=== PATIENT | female | born 1970 | race Caucasian/White ===

== ENCOUNTER 2019-11-02 07:55 | Outpatient (CLI) | payer OTHER, SELFPAY ==
--- NOTE | ~2019-11-02 | US_ITS ---
EXAMINATION: US abdomen limited DATE: 11/02/2019 08:12 INDICATION: Abnormal liver function tests. TECHNIQUE: Multiple grayscale and Doppler ultrasound images of the abdomen were obtained. COMPARISON: CT abdomen and pelvis 02/16/2007 FINDINGS: The visualized portions of the head, body, and tail of the pancreas are normal. The liver i s normal without focal lesion. No liver surface nodularity. There is normal flow in main portal vein. The gallbladder is normal in size and contains gallstones. No gallbladder wall thickening or sonogra phic Mendoza sign. The common duct is normal and measures 3 mm. IMPRESSION: 1. Cholelithiasis. No evidence of acute cholecystitis. Reviewed, dictated and finalized at location A.
== END 2019-11-02 07:56 ==
PROVIDERS: Visit Provider Registered Nurse
DX: R74.8 Abnormal levels of other serum enzymes (principal); K80.50 Calculus of bile duct without cholangitis or cholecystitis without obstruction
CPT/HCPCS: 76705

== ENCOUNTER → 2021-01-22 07:32 | Outpatient (CLI) | payer OTHER, SELFPAY ==
--- NOTE | ~2021-01-22 | MM_ITS ---
EXAMINATION: MM screening william BI w ranjit HISTORY: Screening TECHNIQUE: Craniocaudal and mediolateral oblique 3-D tomosynthesis images were obtained and synthetic 2-D images were generated. CAD analysis was submitted and interpreted. COMPARISON: Comparison to multiple prior studies sequentially, with oldest reviewed study dated 12/14. BREAST PARENCHYMAL COMPOSITION: Breast composed of scattered areas of fibroglandular density FINDINGS: There is no evidence of suspicious mass, calcification, or architectural distortion to sugg est malignancy in either breast. There has been no suspicious interval change. IMPRESSION: 1. No mammographic evidence of malignancy. 2. Recommend routine screening mammography in one year. BI-RADS Category 1: Negative Reviewed, dictated and finalized at location A. T DEPUTY
== END ==
PROVIDERS: PCP Registered Nurse; Visit Provider Nurse Practitioner Obstetrics & Gynecology
DX: Z12.31 Encounter for screening mammogram for malignant neoplasm of breast (principal)
CPT/HCPCS: 77063; 77067

== ENCOUNTER → 2023-03-03 14:50 | Outpatient (CLI) | payer OTHER, SELFPAY ==
--- NOTE | ~2023-03-03 | MM_ITS ---
EXAMINATION: MM screening william BI w ranjit HISTORY: Screening TECHNIQUE: Craniocaudal and mediolateral oblique 3-D tomosynthesis images were obtained and synthetic 2-D images were generated. CAD analysis was submitted and interpreted. COMPARISON: Comparison to multiple prior studies sequentially, with oldest reviewed study dated 01/13. BREAST PARENCHYMAL COMPOSITION: There are scattered areas of fibroglandular density. FINDINGS: There is no evidence of suspicious mass, calcification, or architectural distortion to sugg est malignancy in either breast. There has been no suspicious interval change. IMPRESSION: 1. No mammographic evidence of malignancy. 2. Recommend routine screening mammography in one year. BI-RADS Category 1: Negative Reviewed, dictated and finalized at location A. LERATOR TECHNICIAN
== END ==
PROVIDERS: PCP Nurse Practitioner Obstetrics & Gynecology; Visit Provider Registered Nurse
DX: Z12.31 Encounter for screening mammogram for malignant neoplasm of breast (principal)
CPT/HCPCS: 77063; 77067

== ENCOUNTER 2023-06-10 08:21 | Outpatient (CLI) | payer OTHER, SELFPAY ==
--- NOTE | ~2023-06-10 | US_ITS ---
US abdomen limited DATE: 06/10/2023 08:35 INDICATION: Right upper quadrant abdominal pain. History of gallstones. TECHNIQUE: Real-time imaging of the liver, pancreas, gallbladder COMPARISON: 11/02/2019 Limited abdominal ultrasound examination FINDINGS: No hepatic or pancreatic space-occupying mass lesion. Normal hepatopedal portal venous flow direction. There are stones in the dependent aspect of the gallbladder. No gallbladder wall thickening or perich olecystic fluid. Negative sonographic Mendoza's sign The common bile duct measures 4.5 mm, within norm al range. IMPRESSION: Cholelithiasis Reviewed, dictated and finalized at Location A. Reviewed, dictated and finalized at location A. IMPRESSION: Cholelithiasis
== END 2023-06-10 08:22 ==
LOC: MICIMG 08:22
PROVIDERS: PCP Registered Nurse; Visit Provider Registered Nurse
DX: R10.11 Right upper quadrant pain (principal); K80.20 Calculus of gallbladder without cholecystitis without obstruction
CPT/HCPCS: 76705

== ENCOUNTER 2023-07-13 15:15 | Outpatient (RCR) | payer OTHER, SELFPAY ==
--- NOTE | 2023-06-06 14:08 | OPREHPOC ---
Outpatient Therapy Plan of Care This is a Multidisciplinary Plan of Care that may contain components documented by all disciplines (PT, OT, and ST.) PT Problem 1 PT Problem #1 Knowledge Deficit PT Goal 1 Goal 1. Patient will perform indpendent HEP 2. Patient will verbalize urge suppression techniques Target Visit 2 PT Problem 2 PT Problem #2 Impaired Strength PT Goal 1 Goal 1. Improve pelvic floor strength to 4/5 to decrease incontinence 2. Improve pelvic floor endurance to 10 seconds to decrease incontinence Target Visit 5 PT Problem 3 PT Problem #3 Impaired Functional ADLs PT Goal 1 Goal 1. Patient will report no more than 1 instance of incontinence per week 2. Patient able to hold at least 30 minutes before needing to void to allow for full work activities Target Visit 5
--- NOTE | 2023-06-06 14:08 | PTOPEVAL1 ---
Assessment and note entered by Senait Mariscal DPT Evaluation Information Assessment Status Evaluation Subjective Information Pt reports stress urinary incontinence that has been worsening over time and sometimes notices it if she is busy at work. Incontinence occurs 10 times a day, a few drops at a time. Wears pads all the time which she has only had to do for the past few months. Voids 8 times a day and 0-2 times at night. Can hold urge to void 10-15 minutes depending on fluid intake. Denies pain with urination. BM daily, no pain or incontinence. Reports no history of pelvic pain. Pt has been 2 times, 1 and 1 vaginal. 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 Thinks she had a previous bladder procedure in 3rd grade for UTI's. Previously patient had no or less incontinence and able to hold urge longer. Patient goal: educate myself on how to strengthen No return to MD date set. Reported Pain Level Pain Score 0: Self Report Assessment PT Clinical Summary The patient is presenting to skilled therapy with worsening stress urinary incontinence and urgency. She presents with decreased pelvic floor strength and endurance and decreased overall core strength which are contributing to her incontinence multiple times daily and constant pad use. She will highly benefit from therapy to address these impairments in order to reduce incontinence and improve function. Plan of Care Interventions Manual Therapy,Neuro Re-education,Patient/ Caregiver Education,Therapeutic Activities, Therapeutic Exercise PT Services Indicated Yes Treatment Frequency and 1 time a week for 5 visits Duration These treatments will address the objective and functional deficits as defined above. The patient will be advanced safely and appropriately in order for the patient to progress towards his/her prior level of function. Additional exercises will be introduced and as well as a comprehensive home exercise program upon discharge, if needed, ?to ensure carryover of functional gains achieved in the clinic. This treatment plan has been reviewed and agreement upon by the patient.
--- NOTE | 2023-07-04 09:36 | PCPTNOTE ---
Patient called to cancel appointment on 07/04/23 due to illness.
--- NOTE | 2023-09-26 09:58 | PTOPDC ---
Assessment and note entered by Senait Mariscal, DPT Evaluation Information Assessment Status Discharge - Pt Not Present Subjective Information - Assessment PT Clinical Summary The patient has not attended therapy since 07/13/23 . She will be discharged from therapy at this time . Plan of Care PT Services Indicated No
== END 2023-09-04 14:14 | disposition home or self-care (01) ==
LOC: ANHPT 15:15
PROVIDERS: PCP Nurse Practitioner Obstetrics & Gynecology; Visit Provider Nurse Practitioner
DX: N39.3 Stress incontinence (female) (male) (principal); R10.9 Unspecified abdominal pain
CPT/HCPCS: 97112; 97161; 97530

== ENCOUNTER 2023-08-30 05:51 | Day surgery (SDC) | payer OTHER, SELFPAY ==
[2023-06-20 13:41] VITALS: BMI 37.1
[2023-08-21 10:48] VITALS: BMI 39.0
[2023-08-30 06:19] VITALS: BP 150/102; PULSE 97; RESP 16; TEMP 36.6; O2SAT 99
[2023-08-30] MEDS: LACTATED RINGERS 1,000 ML 150 ML IV CONT (07:00)
--- NOTE | 2023-08-30 07:16 | WPDANESEPPF ---
Anes - Initial Pre Proc Eval Procedure: Operation Date: 08/30/23 07:30 Proposed Procedures p Esophagogastroduodenoscopy - Terence Mcneill MD s Screening Colonoscopy - Terence Mcneill MD Date/Time: 08/30/23 07:16 Surgeon: Terence Mcneill MD Pre Op Diagnosis: Screening neoplasm of colon Patient Data Age: 52 Gender: F Height: 1.6 m Weight: 95.3 kg Last Vital Signs Temp 36.6 C 08/30/23 06:19 Pulse 97 08/30/23 06:19 Resp 16 08/30/23 06:19 BP 150/102 H 08/30/23 06:19 Pulse Ox 99 08/30/23 06:19 O2 Del Method Room Air 08/30/23 06:19 Allergies Allergy/AdvReac Type Severity Reaction Status Date / Time No Known Allergies Allergy Verified 08/30/23 06:13 Home Medications Medication Instructions Recorded Confirmed Type ketoconazole 2 % topical cream 2 applic topical BID 08/21/23 08/30/23 History Patient hx anesthesia problems: none Family hx anesthesia problems: none Results Review: All pre-operative results and documents have been reviewed as part of the pre-operative evaluation. [facility] Past Medical History Medical History (Updated 08/30/23 @ 07:17 by Aguilar Reyes MD) Obesity Surgical History Surgical History (Updated 08/30/23 @ 07:17 by Aguilar Reyes MD) H/O sinus surgery History of section Social History Social History Smoking status: Never smoker Alcohol intake: current Substance use: never Substance use type: does not use Living arrangements: with family Spiritual care concerns: No Anes - Eval Final PreProcedure Day of Procedure 08/30/23 07:16 Patient weight: obese Heart: regular rate and rhythm Lungs: clear to auscultation Airway: Mallampati scale class II Neurological: alert and oriented Last oral intake: >/= 8 hours ASA classification: II Emergent: no Anesthetic plan: proceed Anesthesia type and monitoring: general GIVS and standard monitoring Results Review: All pre-operative results and documents have been reviewed as part of the pre-operative evaluation. Informed Consent: The patient's anesthetic plan and its attendant risks and benefits were discussed with the patient/family/POA. Questions were solicited and answers provided to the satisfaction of the patient/family/POA.
--- NOTE | 2023-08-30 07:23 | PM.HPGS ---
History of Present Illness History of Present Illness Consent: Risks, benefits, and alternatives have been discussed and questions answered. Patient agrees to proceed with procedure. Chief complaint: Screening neoplasm of colon, gerd Narrative: Cindy Castro is a 52 year old female presents for screening colonoscopy. Patient's current weight appetite and bowel movements are normal. Patient denies abdominal pain. Has had no bleeding. Her past history is noncontributory. Patient also has complaints of occasional heartburn. She was prescribed Pepcid but has not taken it. She states that Tums intermittently controls her symptoms. On 1 or 2 occasions food may of hung up in her throat. She attributes this to weight loss medication that she has subsequently discontinued. An EGD Has been requested to assess this. Review of Systems Review of Systems: All systems reviewed & are unremarkable except as noted in HPI and below PMFSH Past Medical History Medical History (Updated 08/30/23 @ 07:26 by Terence Mcneill MD) Obesity Surgical History Surgical History (Updated 08/30/23 @ 07:17 by Aguilar Ryees MD) H/O sinus surgery History of section Social History Social History Smoking status: Never smoker Alcohol intake: current Substance use: never Substance use type: does not use Living arrangements: with family Spiritual care concerns: No Meds Home Medications and Allergies Home Medications Medication Instructions Recorded Confirmed Type ketoconazole 2 % topical cream 2 applic topical BID 08/21/23 08/30/23 History Allergies Allergy/AdvReac Type Severity Reaction Status Date / Time No Known Allergies Allergy Verified 08/30/23 06:13 Vital Signs Vital Signs - 24 hr 08/30/23 06:19 Temperature 97.9 F Pulse Rate 97 Respiratory Rate 16 Blood Pressure 150/102 H Pulse Oximetry 99 Oxygen Delivery Room Air Exam Narrative: Physical exam reveals patient to be alert. Vital signs stable. HEENT exam is unremarkable. Patient is anicteric. Lungs are clear to auscultation and to percussion. Heart is without murmur or extra sounds. After a bowel sounds are present soft nontender with no organomegaly. Digital external rectal exam is normal. Assessment and Plan Assessment and plan (1) Screen for colon cancer: Code(s): Z12.11 - Encounter for screening for malignant neoplasm of colon Status: Acute Assessment and Plan: Patient presents today for screening colonoscopy. She appears to be at average risk for colon polyps. Further recommendations may be given after endoscopy. (2) Heartburn: Code(s): R12 - Heartburn Status: Acute Assessment and Plan: Patient complains of intermittent heartburn. This appears well controlled with Tums. Because food has passed slowly on occasion, an EGD is requested further recommendations may be given after endoscopy.
[2023-08-30 07:53] VITALS: BP 142/85; PULSE 86; RESP 18; O2SAT 98
[2023-08-30 08:03] VITALS: BP 108/70; PULSE 82; RESP 16; O2SAT 98
[2023-08-30 08:13] VITALS: BP 107/75; PULSE 84; RESP 18; O2SAT 99
--- NOTE | 2023-08-30 08:24 | WPDANESPN ---
Anes - Prog Note Post-Op Date/Time: 08/30/23 08:24 Cardiovascular status: normal Respiratory status: normal Airway patency: baseline Mental status: baseline Post-Op hydration status: normal Vital Signs: Last Vital Signs Temp 36.6 C 08/30/23 06:19 Pulse 84 08/30/23 08:13 Resp 18 08/30/23 08:13 BP 107/75 08/30/23 08:13 Pulse Ox 99 08/30/23 08:13 O2 Del Method Room Air 08/30/23 08:13 Pain Score (VAS): 0/10 I/O: Intake & Output 08/29/23 08/30/23 08/30/23 23:59 07:59 15:59 Intake Total 400 50 Balance 400 50 Patient Feedback: Patient satisfied with anesthetic care.
== END 2023-08-30 08:27 | disposition home or self-care (01) ==
PROVIDERS: PCP Registered Nurse; Visit Provider Internal Medicine Gastroenterology
PROC: 0DJ08ZZ Inspection of Upper Intestinal Tract, Via Natural or Artificial Opening Endoscopic (ICD-10-PCS; CPT 43235; principal; 2023-08-30 07:30)
PROC: 0DJD8ZZ Inspection of Lower Intestinal Tract, Via Natural or Artificial Opening Endoscopic (ICD-10-PCS; CPT 45378; 2023-08-30 07:30)
DX: Z12.11 Encounter for screening for malignant neoplasm of colon (principal); D12.5 Benign neoplasm of sigmoid colon; K22.2 Esophageal obstruction; K21.9 Gastro-esophageal reflux disease without esophagitis
CPT/HCPCS: 45380; 43450

== ENCOUNTER 2023-08-30 07:00 | Outpatient (NON) | payer OTHER, SELFPAY | END 2023-08-30 07:01 | disposition home or self-care (01) | LOC: ANHLAB 08-31 07:06 | PROVIDERS: PCP Registered Nurse; Visit Provider Internal Medicine Gastroenterology | DX: Z12.11 Encounter for screening for malignant neoplasm of colon (principal) | CPT/HCPCS: 88305 ==

== ENCOUNTER 2024-08-21 12:53 | Outpatient (CLI) | payer OTHER, SELFPAY ==
--- NOTE | ~2024-08-21 | MM_ITS ---
EXAMINATION: MM screening william BI w ranjit HISTORY: Screening TECHNIQUE: Craniocaudal and mediolateral oblique 3-D tomosynthesis images were obtained and synthetic 2-D images were generated. CAD analysis was submitted and interpreted. COMPARISON: Comparison to multiple prior studies sequentially, with oldest reviewed study dated 03/04. BREAST PARENCHYMAL COMPOSITION: Not dense: There are scattered areas of fibroglandular density. FINDINGS: There is no evidence of suspicious mass, calcification, or architectural distortion to sugg est malignancy in either breast. There has been no suspicious interval change. IMPRESSION: 1. No mammographic evidence of malignancy. 2. Recommend routine screening mammography in one year. BI-RADS Category 1: Negative Reviewed, dictated and finalized at location A.
== END 2024-08-21 12:54 | disposition home or self-care (01) ==
PROVIDERS: PCP Nurse Practitioner; Visit Provider Registered Nurse
DX: Z12.31 Encounter for screening mammogram for malignant neoplasm of breast (principal)
CPT/HCPCS: 77063; 77067